=== PATIENT | male | born 1950 | race Caucasian/White ===

== ENCOUNTER → 2021-03-22 20:52 | Outpatient (CLI) | payer MEDICARE, SELFPAY ==
[2021-03-22 21:11] LABS: Basophils # 0.1 K/mm3 (0-0.2); Basophils % 1.2 % (0.1-2.0); Eosinophils # 0.2 K/mm3 (0.0-0.4); Eosinophils % 2.1 % (0.1-12.0); Hematocrit 39.7 % (42.0-52.0); Hemoglobin 13.4 g/dL (14.1-18.0); Lymphocytes # 1.7 K/mm3 (0.7-4.5); Lymphocytes % 23.1 % (10-50); Mean Corpuscular HGB Conc 33.8 g/dL (31.8-35.4); Mean Corpuscular Hemoglobin 36.5 pg (27.0-31.2); Mean Corpuscular Volume 107.9 fl (80-94); Mean Platelet Volume 8.9 fl (7.4-10.4); Monocytes # 0.3 K/mm3 (0.1-1.0); Monocytes % 3.4 % (1.7-9.3); Neutrophils # 5.2 K/mm3 (1.8-7.8); Platelet Count 148 K/mm3 (142-424); Red Blood Count 3.68 M/mm3 (4.60-6.20); Red Cell Distribution Width 15.5 % (11.5-17.5); White Blood Count 7.5 K/mm3 (4.8-10.8)
[2021-03-22 21:25] LABS: Chloride 103 mmol/L (98-107); Hemoglobin A1C 5.8 % (4.0-6.0); Sodium 136 mmol/L (136-145)
[2021-03-22 21:26] LABS: Potassium 4.5 mmoL/L (3.5-5.1)
[2021-03-22 21:28] LABS: Alanine Aminotransferase 15 U/L (12-78); Albumin Level 4.1 g/dl (3.5-5.0); Albumin/Globulin Ratio 1.2 (1.1-1.8); Alkaline Phosphatase 141 U/L (38-126); Anion Gap 17.5 mEq/L (5-15); Aspartate Amino Transferase 22 U/L (17-59); Bilirubin,Total 0.9 mg/dl (0.2-1.3); Blood Urea Nitrogen 30 mg/dl (9-20); Carbon Dioxide 20 mmol/L (22.0-30.0); Estimated Glomerular Filt Rate 37 ml/min (>60); GFR (African American) 45 ML/MIN (>60); Globulin 3.3 g/dL (1.3-3.2); Total Protein,Serum 7.4 g/dl (6.3-8.2)
[2021-03-22 21:29] LABS: Calcium 9.2 mg/dl (8.4-10.2); Chol/HDL Ratio 4.4 (1-3.5); Cholesterol 128 mg/dl (140-200); Glucose 159 mg/dl (74-100); HDL Cholesterol 29 mg/dl (40-60); Triglycerides 136 mg/dl (30-150); VLDL Cholesterol 27 mg/dL (0-40)
[2021-03-22 21:41] LABS: Direct LDL Cholesterol 69.28 mg/dL (100-129)
[2021-03-22 21:59] LABS: Thyroid Stimulating Hormone 0.33 uIU/mL (0.465-4.68)
[2021-03-22 22:57] LABS: Vitamin B12 229 pg/mL (239-931)
[2021-03-22 23:07] LABS: 25-OH Vitamin D, Total 24.3 ng/mL (30-100)
[2021-03-24 07:33] LABS: CEA 3.6 ng/mL (0.0-4.7); Testosterone,Total 361 ng/dL (264-916)
== END ==
PROVIDERS: Visit Provider Nurse Practitioner Family
DX: Z00.00 Encounter for general adult medical examination without abnormal findings (principal); R53.1 Weakness; R53.83 Other fatigue; E11.51 Type 2 diabetes mellitus with diabetic peripheral angiopathy without gangrene; Z79.84 Long term (current) use of oral hypoglycemic drugs; E55.9 Vitamin D deficiency, unspecified
CPT/HCPCS: 80053; 80061; 82306; 82378; 82607; 83036; 84403; 84443; 85025